=== PATIENT | male | born 1965 ===

== ENCOUNTER 2018-06-21 09:34 | Emergency (ER) | payer OTHER ==
[2018-06-21 09:50] VITALS: O2SAT 99
[2018-06-21] MEDS ORDERED: Lidocaine 2% w Epi 1:100,000 Inj IJ ONE (10:32)
--- NOTE | 2018-06-21 10:57 | ED PDOC ---
HPI: Trauma/Fall - HPI Time Seen by Provider: 06/21/18 10:03 Chief Complaint (Nursing): Abnormal Skin Integrity Chief Complaint (Provider): Fall with Right leg laceration Additional Complaint(s): 52 y/o M with no PMH who presents after fall from fiberglass ladder with scrape on his Right leg. 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 He last received tetanus about 4 - 5 yrs ago. Has minimal pain to the area. Past Medical History Reviewed: Historical Data, Nursing Documentation, Vital Signs Vital Signs: Last Vital Signs Temp 98.6 F 06/21/18 09:48 Pulse 81 06/21/18 09:48 Resp 18 06/21/18 09:48 BP 127/83 06/21/18 09:48 Pulse Ox 99 06/21/18 09:48 - Medical History PMH: No Chronic Diseases - Family History Family History: States: Unknown Family Hx - Immunization History Hx Tetanus Toxoid Vaccination: Yes (4 - 5 yrs ago) - Home Medications Home Medications: Ambulatory Orders Medication Instructions Recorded Ibuprofen [Motrin Tab] 600 mg PO Q6 PRN 5 Days tab 06/21/18 - Allergies Allergies/Adverse Reactions: Allergies Allergy/AdvReac Type Severity Reaction Status Date / Time No Known Allergies Allergy Verified 06/21/18 09:48 Review of Systems Musculoskeletal: Positive for: Leg Pain Physical Exam - Reviewed Nursing Documentation Reviewed: Yes Vital Signs Reviewed: Yes - Physical Exam Appears: Positive for: Well Pulses-Dorsalis Pedis (R): 2+ Extremity: Positive for: Other (approximately 2.5 cm linear laceration on anterior Right culver with abrasions around laceration. No erythema, drainage. No bone or tendon noted. ) - ECG O2 Sat by Pulse Oximetry: 99 Medical Decision Making Medical Decision Making: laceration repair Right Tib/fib x-ray: unremarkable x-ray of the tibia/fibula Procedures - Laceration/Wound Repair Right Lower Anterior Wound's Depth, Shape: linear Wound Explored: no foreign body removed Betadine Prep?: Yes Anesthesia: Lidocaine w/ Epi (3cc) Wound Repaired With: Sutures Suture Size/Type: 4:0 Number of Sutures: 4 Layer Closure?: No Wound Complexity: Simple Disposition - Clinical Impression Clinical Impression: Laceration of right lower extremity - Patient ED Disposition Is Patient to be Admitted: No - Disposition Referrals: [facility] [Outside] Disposition: Routine/Home Disposition Time: 12:17 Condition: STABLE Additional Instructions: Sutures to be removed in 10 - 12 days. Can return here to ER for removal or go to your primary care doctor. Keep wound covered and dry for the next 24hrs. You can then remove the dressing and wash gently with soap and water. Place antibiotic cream and keep it covered when working. Leave it open to the air at night after the first 24hrs. You can use Ibuprofen for pain. Prescriptions: Ibuprofen [Motrin Tab] 600 mg PO Q6 PRN 5 Days tab PRN Reason: Pain, Moderate (4-7) Forms: [facility] (B[place]ian), [facility] School/Work Excuse Print Language: [place]
[2018-06-21 12:17] VITALS: BP 125/80; PULSE 75; RESP 16; TEMP 97.8
--- NOTE | 2018-06-21 14:05 | RAD ---
Date of service: 06/21/2018 PROCEDURE: Radiographs of the right tibia and fibula. HISTORY: trauma to Right leg after fall off of ladder COMPARISON: None available TECHNIQUE: Frontal and lateral views obtained. FINDINGS: BONES: No fracture or destructive lesion. JOINT SPACES: Unremarkable. OTHER FINDINGS: None. IMPRESSION: Unremarkable radiographs of the right tibia and fibula.
== END 2018-06-21 12:17 | disposition home or self-care (01) ==
LOC: H.ER 09:34
DX: S81.811A Laceration without foreign body, right lower leg, initial encounter (principal); W11.XXXA Fall on and from ladder, initial encounter